=== PATIENT | female | born 1995 | race African-American/Black ===

== ENCOUNTER 2021-09-20 13:10 | Inpatient (IN) | payer OTHER ==
[2021-09-20 13:59] VITALS: BMI 52.3
[2021-09-20 15:11] LABS: BASO % 0.3 % (0-2.0); EOS % 0.1 % (0-4.5); HEMATOCRIT 31.4 % (32.4-45.2); HEMOGLOBIN 10.8 GM/dL (10.7-15.3); LYMPH % 13.2 % (8-40); MCH 30.7 pg (25.7-33.7); MCHC 34.4 g/dl (32.0-36.0); MEAN CELL VOLUME 89.1 fl (80-96); MEAN PLT VOLUME 9.1 fl (7.5-11.1); MONO % 6.8 % (3.8-10.2); NEUT % 79.6 % (42.8-82.8); PLATELET COUNT 221 10^3/uL (134-434); RBC 3.52 M/mm3 (3.60-5.2); RDW 13.5 % (11.6-15.6)
[2021-09-20 15:21] LABS: INR 0.99 (0.83-1.09); PROTHROMBIN TIME (PATIENT) 11.4 SEC (9.7-13.0)
[2021-09-20 15:24] LABS: ACTIVATED PTT 26.1 SECONDS (25.2-36.5)
[2021-09-20] MEDS ORDERED: OXYTOCIN 20 UNITS in 0.9% NS 20 UNIT/1,000 ML INFUS.BAG IV ONE ×2 (15:29→20:15)
[2021-09-20] MEDS ORDERED: LIDOCAINE HCL 1% PRESERVATIVE FREE - 30ML VIAL ONE (15:29)
[2021-09-20] MEDS ORDERED: BUPIVACAINE HCL/PF 0.25% (2.5MG/ML) 10 ML VIAL ONE (15:35)
[2021-09-20] MEDS ORDERED: DEXTROSE 5%-LACTATED RINGERS 1,000 ML IV SCH (15:45)
[2021-09-20 15:53] LABS: CALCIUM 8.4 mg/dL (8.5-10.1)
[2021-09-20 15:54] LABS: BLOOD UREA NITROGEN 5.7 mg/dL (7-18)
[2021-09-20 15:57] LABS: CREATININE 0.4 mg/dL (0.55-1.3)
[2021-09-20] MEDS ORDERED: METHYLERGONOVINE MALEATE 0.2 MG/1 ML AMP IM PRN (17:14)
[2021-09-20] MEDS ORDERED: BENZOCAINE 28 GM HEMORRHOIDAL OINTMENT TP PRN (17:14)
[2021-09-20] MEDS ORDERED: WITCH HAZEL 50% (TUCKS) 40 PAD/JAR PAD TP PRN (17:14)
[2021-09-20] MEDS ORDERED: ACETAMINOPHEN 325 MG TABLET (FP) PO PRN (17:14)
[2021-09-20] MEDS ORDERED: oxyCODONE HCL 5 MG TABLET PO PRN (17:14)
[2021-09-20] MEDS ORDERED: BISACODYL 10 MG SUPP.RECT RC PRN (17:14)
[2021-09-20] MEDS ORDERED: BENZOCAINE 20% 57 GM BOTTLE TP PRN (17:14)
[2021-09-20] MEDS ORDERED: OXYTOCIN 20 UNITS in 0.9% NS 20 UNIT/1,000 ML INFUS.BAG IV SCH (17:15)
[2021-09-20 20:50] VITALS: RESP 18
[2021-09-21] MEDS: IBUPROFEN 600 MG TABLET (FP) PO PRN ×2 (01:37→21:43)
[2021-09-21 07:03] LABS: BASO % 0.3 % (0-2.0); EOS % 0.4 % (0-4.5); HEMATOCRIT 29.5 % (32.4-45.2); HEMOGLOBIN 10.1 GM/dL (10.7-15.3); MCH 30.6 pg (25.7-33.7); MCHC 34.2 g/dl (32.0-36.0); MEAN CELL VOLUME 89.5 fl (80-96); MEAN PLT VOLUME 9.8 fl (7.5-11.1); MONO % 8.3 % (3.8-10.2); PLATELET COUNT 188 10^3/uL (134-434); RDW 13.4 % (11.6-15.6); WHITE BLOOD COUNT 11.8 K/mm3 (4.0-10.0)
[2021-09-21] MEDS: PRENATAL VITAMINS W/ FOLIC ACID TABLET (FP) PO SCH (09:56)
[2021-09-21] MEDS ORDERED: SENNOSIDES/DOCUSATE COMBO (SENNA PLUS) TABLET (UD) PO PRN (22:00)
[2021-09-22 09:43] VITALS: BP 119/77; PULSE 80; TEMP 98.3
[2021-09-22] MEDS: IBUPROFEN 600 MG TABLET (FP) PO PRN (09:59)
[2021-09-22] MEDS: PRENATAL VITAMINS W/ FOLIC ACID TABLET (FP) PO SCH (09:59)
== END 2021-09-22 13:05 | disposition home or self-care (01) | DRG 807 ==
LOC: JLDR 13:10 → J3W 19:53
PROVIDERS: ADMIT Obstetrics & Gynecology; ATTEND Obstetrics & Gynecology
PROC: 10E0XZZ Delivery of Products of Conception, External Approach (ICD-10-PCS; principal; 2021-09-20)
DX: O80 Encounter for full-term uncomplicated delivery (principal); Z37.0 Single live birth; Z3A.37 37 weeks gestation of pregnancy
CPT/HCPCS: 36415; 59409; 80048; 85025; 85610; 85730; 86780; 86850; 86900; 86901; C9803-CS; U0003; U0005